=== PATIENT | female | born 1990 | race American Indian/Alaskan Native ===

== ENCOUNTER 2018-09-11 16:31 | Outpatient (CLI) | payer MEDICAID ==
[2018-09-11] MEDS ORDERED: LACTATED RINGERS 500 ML IV ONE (18:20)
[2018-09-11 18:44] VITALS: BP 117/65
[2018-09-11 19:10] LABS: Bilirubin,Urine NEG (Negative); Blood,Urine NEG (Negative); Color,Urine Yellow (Yellow); Mucus,Urine FEW /HPF; Protein,Urine <15 mg/dL mg/dL (Negative); Urobilinogen,Urine < 2.0 mg/dL (<2.0)
== END 2018-09-11 20:40 | disposition home or self-care (01) ==
LOC: TRG 16:31
PROVIDERS: ATTEND Obstetrics & Gynecology
DX: O47.03 False labor before 37 completed weeks of gestation, third trimester (principal); Z3A.33 33 weeks gestation of pregnancy
CPT/HCPCS: 59025; 81001; 82962